=== PATIENT | female | born 1950 | race Caucasian/White ===

== ENCOUNTER 2025-06-16 08:03 | Outpatient (OUT) | payer MEDICARE, SELFPAY ==
--- NOTE | 2025-06-16 08:21 | MM_ITS ---
Patient Name: LESLY MARTINEZ MR#: [id number] : 1950 Exam Date: 06/16/2025 Ordering Doctor: DR MADISON MUNOZ M.D. RADIOLOGY REPORT PROCEDURE: MM TOMOSYNTHESIS SCREENING BI COMPARISON: MG MAMM SCREEN 3D VIRGEN CAD, 10/06/2022. MAMMO SCREEN DIG VIRGEN, 04/29/2012. INDICATIONS: Screening Calculator Name NCI Breast Cancer Risk Assessment Tool 5 Year Breast Cancer Risk 3.10% Lifetime Breast Cancer Risk 8.10% Personal Breast Cancer No Personal Ovarian Cancer No Treatments None Family Cancers Sister with breast cancer at age 61; Father with aortic tumor cancer at age 60; Brother with leukemia cancer at age 24. LOCATION: [facility] BREAST COMPOSITION: The breasts are heterogeneously dense, which may obscure small masses. FINDINGS: DIAGNOSTIC CATEGORY 1--NEGATIVE. RIGHT BREAST: No significant suspicious finding. LEFT BREAST: No significant suspicious finding. RECOMMENDATIONS: ROUTINE MAMMOGRAM AND CLINICAL EVALUATION IN 12 MONTHS. PLEASE NOTE: A NORMAL MAMMOGRAM DOES NOT EXCLUDE THE POSSIBILITY OF BREAST CANCER. A CLINICALLY SUSPICIOUS PALPABLE LUMP SHOULD BE BIOPSIED. Dictated by: Galindo Alberts MD on 06/16/2025 at 12:32 Approved by: Galindo Alberts MD on 06/16/2025 at 12:36
[2025-06-16 09:09] LABS: Microalbum Creatinine Ratio Ur 41.3 mg/g (0.0-29.9)
[2025-06-16 09:17] LABS: Alanine Aminotransferase 27 U/L (14-59); Albumin Globulin Ratio 1.0; Albumin Level 4.2 g/dL (3.4-5.0); Alkaline Phosphatase 58 U/L (46-116); Anion Gap 14.0; Aspartate Amino Transferase 19 U/L (15-37); Blood Urea Nitrogen 22.0 mg/dL (7.0-18.0); Calcium 10.0 mg/dL (8.5-10.1); Carbon Dioxide 29.1 mmol/L (21.0-32.0); Chloride 102 mmol/L (98-107); Cholesterol 236 mg/dL (<=200); Estimated GFR (African America 42 (>=60 mL/min/1.73m^2); Estimated GFR (Non-African Ame 35 (>=60 mL/min/1.73m^2); Globulin 4.0 g/dL; Glucose 110 mg/dL (74-106); HDL Cholesterol 113 mg/dL (40-60); Potassium 4.1 mmol/L (3.5-5.1); Sodium 141 mmol/L (136-145); Thyroid Stimulating Hormone 7.372 uIU/mL (0.358-3.740); Total Protein 8.2 g/dL (6.4-8.2); Triglycerides 73 mg/dL (<=150); VLDL CHOLESTEROL 14.6 mg/dL
[2025-06-16 09:36] LABS: Hematocrit 46.8 % (36.0-48.0); Hemoglobin 15.3 g/dL (12.0-16.0); Immature Granulocytes Abs Auto 0.02 10^3/uL (0.00-0.03); Immature Granulocytes Pct Auto 0.3 % (0.0-0.5); Lymphocytes Absolute Auto 2.3 10^3/uL (1.2-3.8); Mean Corpuscular HGB Conc 32.7 g/dL (29.9-35.2); Mean Corpuscular Hemoglobin 30.7 pg (26.7-34.0); Mean Corpuscular Volume 93.8 fL (81.0-99.0); Platelet Count 205 10^3/uL (150-450); Red Blood Count 4.99 10^6/uL (4.20-5.40); White Blood Count 7.3 10^3/uL (4.0-11.0)
== END 2025-06-16 08:04 | disposition home or self-care (01) ==
PROVIDERS: PCP Family Medicine; Visit Provider Family Medicine
DX: Z00.00 Encounter for general adult medical examination without abnormal findings (principal); E78.5 Hyperlipidemia, unspecified; I10 Essential (primary) hypertension; R53.83 Other fatigue; Z12.31 Encounter for screening mammogram for malignant neoplasm of breast; Z80.3 Family history of malignant neoplasm of breast; Z80.6 Family history of leukemia; Z80.8 Family history of malignant neoplasm of other organs or systems
CPT/HCPCS: 36415; 77063; 77067; 80053; 80061; 82043; 82570; 84439; 84443

== ENCOUNTER 2025-10-03 08:30 | Outpatient (OUT) | payer MEDICARE, SELFPAY ==
--- OUTSIDE RECORDS SUMMARY | 2025-09-19 11:01 | XMS_ITS | Continuity of Care Document ---
Author Organization [facility] Address [address] [place] [address] Phone Care Team Providers Care Cold Press Operator Name Role Phone Skyla Pinto MD Primary Care Provider Lisa Mallory Attending Provider [phone] Care Teams Patient Care Team Team Status: Active Member Role/Relationship Status Dates Skyla Pinto MD Primary Care Provider Active Patient Care Team Team Status: Inactive Member Role/Relationship Status Dates Skyla Pinto MD Primary Care Provider Active Start: September 19, 2025 End: September 19Shamika Crisostomoending ProviderActiveStart: September 19, 2025 End: September 19, 2025 Chief Complaint and Reason for Visit Chief Complaint Admit Date ckd 3 September 19, 2025 3 :29pm Reason for Visit Admit Date CKD (chronic kidney disease) stage 3, GF R 30-59 ml/min September 19, 2025 3:29pm Hyperlipidemia, unspecified August 3:29pm Hypertensive chronic kidney disease with stage 1 through stage 4 chronic ki September 19, 2025 3:29pm Murmur September 19, 2025 3 :29pm Secondary hyperparathyroidism September 192024 3:29pm Allergies, Adverse Reactions, Alerts Allergen Type Severity Reaction Last Updated Verified Status No Known Allergies Allergy Unknown September 19, 2025 3:34pmYesActive Social History Smoking Status Status Start Date End Date Date of Observa tion Never smoked tobacco (finding) September 19, 2025 3:57pm Observation Status Observation Response Date of Response Legal Sex Female (finding) [facility] 1949 Problems Active Problems Problem Diagnosis/Recorded Date Onset Date Stat us Screening mammogram for [facility] cancer May 29, 2025 11:22am Unknown Active Secondary hyperparathyroidism September 19, 2025 3:50p m Unknown Active Fatigue May 29, 2025 11:29am Unknown Acti ve CKD (chronic kidney disease) stage 3, GFR 30-59 ml/min July 05, 2025 12:54pm Unknown Active Hypertensive chronic kidney disease with stage 1 through stage 4 chronic kidney disease, or unspecified chronic kidney disease September 19, 2025 3:50pm Unknown Active Wellness examination May 29, 2025 11:13am Unknown Active Murmur September 19, 2025 3:54pm Unknown Ac tive Hyperlipidemia, unspecified May 26, 2025 3:15pm Feb ruary 2015 Active Essential (primary) hypertension May 26, 2025 3:15p m Unknown Active Allergic rhinitis, unspecified April 20, 2024 11:39am January 14, 2016 Active Ulcerative colitis May 26, 2025 3:17pm Unknown Active Medications Medication Status Dose Units Route Directions Qty Days Refills S tart Date Stop Date End Date Reason(s) Instructions Adherence Simvastatin 20 mg tablet Discontinued 0 .ROUTE.NPCUQXD426Fjwih 2023 9:45pmOctober 2023 9:00amTAKE 1 TABLET BY MOUTH EVERY DAYSimvastatin 20 mg tabletDiscontinued0.ROUTE.XSCMJOM736Djfmyuf 2023 9:00amSeptember 2024 8:37amTAKE 1 TABLET BY MOUTH EVERY DAY Spironolactone 50 mg ebkfymFdjpzyjhnktp70EFEJVdnyoAbfprzk 2023 12:00am September 08, 2024 1:09pmSpironolactone 50 mg tabletDiscontinued0.ROUTE.COMPLEX 903October 2023 1:09pmSeptember 2024 10:39amTAKE 1 TABLET BY MOUTH EVERY DAYLevothyroxine 75 mcg bcmhsqFwxtlz83CFIAPfsdld397Lwczlp 2024 12:00amComplies with drug therapySimvastatin 20 mg tabletDiscontinued0.ROUTE .JIACOYH802Ygbnedfwi 2024 8:37amOctober 2024 3:40pmTAKE 1 TABLET BY MOUTH EVERY DAYSpironolactone 50 mg tabletDiscontinued0.ROUTE.EUOXWNQ897 August 23, 2025 10:39amOct2024 3:40pmTAKE 1 TABLET BY MOUTH EVERY DAYIpratropium Scandia 21 mcg (0.03 %) spray,non-aerosolActive0.ROUTE .FWSROKF828MsezqseSeptember 11, 2025 3:12pmINSTILL 2 SPRAYS IN EACH NOSTRIL TWICE DAILY FOR 90 DAYSComplies with drug therapySimvastatin 20 mg fjhsmnDdgavrougbkd87KBXN DailyApril 2023 12:00amApril 2023 9:45pmIpratropium Scandia 21 mcg (0.03 %) spray,non-ohleukaNvcubduqyuac6DJPPSNJUGQQPSAMHufte nqnlv614Eive 2024 12:00amJune 2024 10:55amadminister into each nostrilSimvastatin 20 mg zlkdeaEyznzd59YRYJJohxq at bedtimeSeptember 19, 2025 3:35pmComplies with drug therapyAscorbic Acid (Vitamin C) 1,000 mg gpweglSdoffi1261TEAUXgahcGhlrbpq 21st, 2025 12:00amComplies with drug therapyCetirizine (Zyrtec) 10 mg wekzojJxzfwu81IB PODaily as neededSeptember 19, 2025 12:00amComplies with drug therapyAspirin 81 mg hrmttjKfqofo56LMKIYwnpbWjbnivb 21st, 2025 12:00amComplies with drug therapy Spironolactone 50 mg aukyusWgajaw30CVMCHdkeVztighk 21st, 2025 3:35pmComplies with drug therapyCholecalciferol (Vitamin D3) 25 mcg (1,000 unit) capsuleActive 25MCGPODailySeptember 19, 2025 12:00amComplies with drug therapyPsyllium Husk (Wal-Mucil Fiber) 0.52 gram capsuleActive0.52GMPODaily at bedtimeSeptember 19, 2025 12:00amComplies with drug therapyCalcium Citrate-Vitamin D3 315 mg-5 mcg (200 unit) uitqknZrmnza3NPJVTOfyfqDhpwjre 21st, 2025 12:00amComplies with drug therapyOmega 2-Kyy-Lgf-Fish Oil (Fish Oil) 100-160-1,000 mg capsuleActiveCAPPO September 19, 2025 12:00amComplies with drug therapyMecobalamin (Vitamin B12) 1,000 mcg tablet,lpwcdszaxwlrloSywrpb3686YDNGAPOLPZRTZRomoaIyhkqrz 21st, 2025 12:00amplace tablet under tongue and allow to dissolve for at least30 secs before swallowingComplies with drug therapyAspirin 325 mg ixkkdzOlryddqcjsjf892 MGPODailyJune 2024 12:00amOctober 2024 3:36pmIpratropium Scandia 21 mcg (0.03 %) spray,non-kcybywvZuoktgpsihku8UACEGMHOBQZNCBPUorlv dailyJune 2024 12:00amJune 2024 11:41amadminister into each nostrilIpratropium Scandia 21 mcg (0.03 %) spray,non-nmcbvudApyahoyuklqo9IQZYZPKTUBVVRJVHyjye daily 21539Qzgl 2024 11:41amOctober 2024 3:12pmadminister into each nostril Immunizations Immunization Event Date Not Given Reason Dose Number Shopping Investigator Lot Number Reason(s) Given Vaccine Information Statement (VIS) Detail Administration Location COVID-19 mRNA, Comirnaty (BIOCUREX) January 07, 2021 COVID-19 mRNA, Comirnaty (BIOCUREX)January 28OVI mRNA, Comirnaty (BIOCUREX)September 13OVI mRNA, Comirnaty (BIOCUREX)February 26, 2022 influenza, unspecified formulationAugcase[facility] 2018influenza, unspecified formulationAmerican Healthcare Systemsneumococcal Conjugate Vaccine, 13 valentApril 2017 Vital Signs Vital Reading Result Reference Range Collection Date/Time Height 62.5 [in_i] September 19, 2025 3:15vkNonmpl12.27 kgOctcasey county hospital 2024 3:31pmBody Temperature 97.2 [degF]97.6-99.0Octcasey county hospital 2024 3:31pmHeart Rate76 /aks26-405GzfycsjSeptember 19, 2025 3:31pmRespiratory rate18 /fjo93-12Uvoqwsf 2024 3:31pmOxygen saturation by Pulse ayeghbnt35 %95-100Augcasey county hospital 2024 3:31pmBP Yokgyidi501 mm[Hg]100-140October 2024 3:31pmBP Ktislwwbz70 mm[Hg]60-100Octcasey county hospital 2024 3:31pmBMI (Body Mass Index)28.3 kg/u9RgwhidbSeptember 19, 2025 3:31pm Advance Directives Advance Directive Response Recorded Date/ Time Advance Directives No September 19, 2025 3:57pm Insurance Providers Guarantor Rochelle Liz [address] [address]Cfbhopb Info.Home Phone: Payer Group Member ID Coverage Type Subscriber Relationship to Subscriber Effective Date Expiration Date Medicare [id number] Liz Id: [id number] [address] [address] Home Phone: Email: [email or web address] Advantage PFFS [id number] Liz Id: [id number] [address] [facility] [address] Home Phone: Email: [email or web address] [id number] Liz Id: [id number] [address] [facility] [address] Home Phone: Email: [email or web address] Encounters Encounter Location(s) Arrival/Admit Date Discharge/Departure Date Discharge/Departure Disposition Provider(s) Departed Physician/ Provider Office Visit -[facility] September 19, 2025 3:29pm September 19, 2025 4:00pm Discharged to home care or self care (routine discharge) Frank Mallory MD Recent Diagnosis Onset Date Admit Date CKD (chronic kidney disease) stage 3, GFR 30-59 ml/min Unknown September 19, 2025 3:29pm Hyperlipidemia, unspecified January 14, 2016 September 19, 2025 3:29pm Hypertensive chronic kidney disease with stage 1 through stage 4 chronic ki Unknown September 19, 2025 3:29pm Murmur Unknown September 19 3:29pm Secondary hyperparathyroidism Unknown Oc tober 2024 3:29pm Assessments Diagnosis Onset Date Resolution Status Admit Date CKD (chronic kidney disease) stage 3, GF R 30-59 ml/min acuteOct2024 3:29pmHyperlipidemia, unspecifiedFebruary 2015 acuteOctober 2024 3:29pmHypertensive chronic kidney disease with stage 1 through stage 4 chronic kiacuteSeptember 19, 2025 3:29pmMurmuracuteOct2024 3:29pmSecondary hyperparathyroidismacuteSeptember 19, 2025 3:29pm Plan of Treatment Future Tests Future scheduled test information is unavailable Pending Tests Test Name Ordered Date Scheduled Date ECH echo transthoracic September 19, 2025 3:53pm Immunofixation, (CHAR), UrineSeptember 19, 2025 3:48pm6 WeeksRenal Function Panel September 19, 2025 3:48pm6 WeeksUS renal BIOctober 2024 3:52pm Future Visits Future appointment information is unavailable Future Procedures Procedure Name Ordered Date Scheduled Date Dipstick and Microscopic September 19, 2025 3:48 pm 6 Weeks Hemogram CBC Without Diff September 19, 2025 3:4 8pm 6 Weeks Immunofixation,Serum September 19, 2025 3:48pm 6 Weeks Free K+L LT Chains, Qn, S September 19, 2025 3:4 8pm 6 Weeks Magnesium September 19, 2025 3:48pm 6 Week s Protein Creat Ratio Ur Random September 19, 2025 3:48pm 6 Weeks Parathyroid Hormone Intact September 19, 2025 3: 48pm 6 Weeks Prot Electrophoresis w/Interp September 19, 2025 3:48pm 6 Weeks Protein Electrophoresis, Serum September 19 3:48pm 6 Weeks Uric Acid September 19, 2025 3:48pm 6 Week s Vitamin D 25 Hydroxy Total September 19, 2025 3: 48pm 6 Weeks Future Medications Future medication information is unavailable Patient Instructions Patient instructions are unavailable
--- NOTE | 2025-10-03 08:37 | US_ITS ---
The [address] [address] Patient Name: LESLY MARTINEZ MRN: [id number] date: 1950 Sex: F Assigned Patient Location: US Current Patient Location: US Accession/Order Number: [id number] Exam Date: 10/03/2025 08:40 Report Date: 10/03/2025 10:00 At the request of: BERENICE SY Procedure: US renal BI BILATERAL RENAL AND BLADDER ULTRASOUND CLINICAL HISTORY: Stage 3 Chronic Kidney Disease, Hypertensive Renal Disease COMPARISON: None Estimation of renal size is approximately 9.2 cm on the right and 10.0 cm on the left. No shadowing calculi are identified. There is no hydronephrosis on the left though there is mild pelvicaliectasis on the right. No renal mass lesions were imaged. There is no perinephric fluid. The urinary bladder is partially distended with a volume of 58 mL. No contour or intraluminal abnormalities are seen. Bilateral ureteral jets are seen. US/US renal BI IMPRESSION: MILD RIGHT HYDRONEPHROSIS, UNDETERMINED ETIOLOGY. Impression dictated by: Mariola Washington M.D. 10/03/2025 10:00 AM Dictation Location: [place] [address] Electronically authenticated by: [id number] Y Date: 10/03/2025 10:00
--- NOTE | 2025-10-03 09:30 | CA_ITS ---
Patient Name: LESLY MARTINEZ MR#: [id number] : 1950 Exam Date: 10/03/2025 Ordering Doctor: BERENICE SY ECHOCARDIOGRAM REPORT PROCEDURE: CA ECHO DOPPLER COMPLETE INDICATIONS: Cardiac Murmur COMPARISON: None. DESCRIPTION: COMPLETE ECHOCARDIOGRAM Real-time transthoracic echocardiography with 2D, M-mode, spectral and color flow Doppler performed. QUALITY: Technical quality was good. LEFT VENTRICLE: Normal chamber size. Proximal septal hypertrophy (sigmoid septum). Normal systolic function. Estimated left ventricular ejection fraction is 70%. No significant left ventricular outflow tract obstruction. LV EF: Normal left ventricular ejection fraction, (>55%). DIASTOLIC: Normal diastolic function. ATRIAL SEPTUM: Visually appears intact. LEFT ATRIUM: Mild chamber dilatation. RIGHT ATRIUM: Normal chamber size. RIGHT VENTRICLE: Mild chamber dilatation. Normal right ventricular systolic function. TRICUSPID VALVE: Normal mobility and thickness. No stenosis with mild regurgitation. No evidence of pulmonary hypertension. RVSP 26 mmHg MITRAL VALVE: Normal mobility and thickness. No evidence of mitral valve stenosis. There is no mitral annular calcification. No mitral regurgitation. AORTIC VALVE: Normal trileaflet appearance. No visible sclerosis. Normal leaflet mobility. No evidence of aortic valve stenosis. No aortic regurgitation. AORTIC ROOT: Normal diameter and appearance, measuring 3.2 cm. Ascending aorta is normal in size, measuring 3.1 cm. PULMONIC VALVE: Normal thickness and mobility. No stenosis. Trivial regurgitation. PERICARDIUM: No evidence of pericardial effusion. IVC: Collapses with inspiration. PLEURA: CONCLUSION: 1. The left ventricle is normal in size. There is mild proximal septal hypertrophy. Systolic function is normal. No significant LVOT obstruction. LVEF is estimated at 70%. 2. Mildly dilated right ventricle with normal systolic function. 3. Normal diastolic function. 4. Mild tricuspid regurgitation. 5. Normal right-sided pressures. Adult Echocardiography Procedure Report Left Ventricle LVEDD (3.7 - 5.6 cm): 4.06 cm LVESD (2.2 - 4.0 cm): 2.10 cm LVIVS thickness (0.6 - 1.2 cm): 1.06 cm LVPW thickness (0.5 - 1.0 cm): 0.81 cm e': 0.11 m/s E - e': 4.89 LVOT Max Gradient: 4.47 mm[Hg] LVOT Area (cm2): 1.06 m/s Peak Velocity (LVOT): 1.06 m/s Mean Velocity (LVOT): 0.62 m/s LVOT Diameter 1.96 cm Left Ventricular Ejection Fraction: 70 % Left Atrium LA Volume Index (2D A2C): 35.02 ml/m2 Left Atrium Systolic Dimension: 3.58 cm Mitral Valve MV E to A Ratio: 0.85 Mitral Valve A-Wave Peak Velocity: 0.63 m/s Mitral Valve E-Wave Peak Velocity: 0.53 m/s Right Ventricle Aorta AO Root Diam: 3.24 cm Ascending Ao Diam: 3.11 cm Aortic Valve AoV Area (Peak Raúl): 3.04 cm2, 3.04 cm2 AoV Area (VTI): 2.62 cm2, 2.62 cm2 Peak Velocity(Antegrade Flow): 1.05 m/s Peak Gradient(Antegrade Flow): 4.42 mm[Hg] Mean Velocity(Antegrade Flow): 0.72 m/s Mean Gradient(Antegrade Flow): 2.38 mm[Hg] Velocity Time Integral: 25.29 cm Tricuspid Valve Peak Velocity (Regurgitant Flow): 2.42 m/s Pulmonic Valve Mean Gradient: 1.47 mm[Hg] Mean Velocity: 0.55 m/s Peak Velocity: 0.93 m/s, 0.93 m/s Peak Gradient: 3.46 mm[Hg], 3.43 mm[Hg] Right Atrium Right Atrium Systolic Pressure: 31.25 ml, 31.25 ml Dictated by: Lawrence Curran M.D. on 10/03/2025 at 21:20 Approved by: Lawrence Curran M.D. on 10/03/2025 at 21:27
== END 2025-10-03 08:31 | disposition home or self-care (01) ==
LOC: US 08:30
PROVIDERS: PCP Family Medicine; Visit Provider Internal Medicine
DX: R01.1 Cardiac murmur, unspecified (principal); N25.81 Secondary hyperparathyroidism of renal origin; I12.9 Hypertensive chronic kidney disease with stage 1 through stage 4 chronic kidney disease, or unspecified chronic kidney disease; N18.30 Chronic kidney disease, stage 3 unspecified; E78.2 Mixed hyperlipidemia; N13.30 Unspecified hydronephrosis
CPT/HCPCS: 76775; 93306

== ENCOUNTER 2025-10-06 09:17 | Outpatient (OUT) | payer MEDICARE, SELFPAY ==
[2025-10-06 09:58] LABS: Hematocrit 40.6 % (36.0-48.0); Hemoglobin 13.6 g/dL (12.0-16.0); Mean Corpuscular HGB Conc 33.5 g/dL (29.9-35.2); Mean Corpuscular Hemoglobin 30.8 pg (26.7-34.0); Mean Corpuscular Volume 92.1 fL (81.0-99.0); Platelet Count 172 10^3/uL (150-450); Red Blood Count 4.41 10^6/uL (4.20-5.40); White Blood Count 5.7 10^3/uL (4.0-11.0)
[2025-10-06 10:35] LABS: Albumin Level 3.6 g/dL (3.4-5.0); Anion Gap 16.3; Blood Urea Nitrogen 17.0 mg/dL (7.0-18.0); Calcium 9.8 mg/dL (8.5-10.1); Carbon Dioxide 25.7 mmol/L (21.0-32.0); Chloride 100 mmol/L (98-107); Estimated GFR (African America 58 (>=60 mL/min/1.73m^2); Estimated GFR (Non-African Ame 48 (>=60 mL/min/1.73m^2); Glucose 98 mg/dL (74-106); Magnesium 1.7 mg/dL (1.8-2.4); Potassium 4.0 mmol/L (3.5-5.1); Sodium 138 mmol/L (136-145); Uric Acid 5.4 mg/dL (2.6-6.0)
[2025-10-06 10:42] LABS: Protein Creatinine Ratio Urine 0.59; Total Protein Urine Random 37.8 mg/dL (<=11.9)
[2025-10-06 10:55] LABS: Glucose Urine UA NEGATIVE (NEGATIVE)
[2025-10-06 11:36] LABS: Cast Seen? NONE SEEN #/LPF (NONE SEEN); Crystals Seen? None Seen #/HPF (None Seen)
[2025-10-10 15:08] LABS: Albumin 3.6 g/dL (2.9-4.4); Alpha-1-Globulin 0.3 g/dL (0.0-0.4); Alpha-2-Globulin 0.8 g/dL (0.4-1.0); Free Kappa Lt Chains,S 32.6 mg/L (3.3-19.4); Free Lambda Lt Chains,S 17.3 mg/L (5.7-26.3); Gamma Globulin 0.9 g/dL (0.4-1.8); Immunofixation Result, Serum Comment: (.); Immunoglobulin A, Qn, Serum 108 mg/dL (64-422); Kappa/Lambda Ratio,S 1.88 (0.26-1.65)
== END 2025-10-06 09:18 | disposition home or self-care (01) ==
LOC: LAB 09:17
PROVIDERS: PCP Family Medicine; Visit Provider Internal Medicine
DX: I12.9 Hypertensive chronic kidney disease with stage 1 through stage 4 chronic kidney disease, or unspecified chronic kidney disease (principal); N18.30 Chronic kidney disease, stage 3 unspecified; E78.2 Mixed hyperlipidemia; N25.81 Secondary hyperparathyroidism of renal origin
CPT/HCPCS: 36415; 80069; 81001; 82306; 82570; 82784; 83521; 83735; 83970; 84155; 84156; 84165; 84166; 84550; 85027; 86334; 86335

== ENCOUNTER 2025-11-03 08:33 | Outpatient (OUT) | payer MEDICARE, SELFPAY ==
--- NOTE | 2025-11-03 08:36 | CT_ITS ---
The [address] [address] Patient Name: LESLY MARTINEZ MRN: [id number] date: 1950 Sex: F Assigned Patient Location: CT Current Patient Location: CT Accession/Order Number: [id number] Exam Date: 11/03/2025 08:39 Report Date: 11/03/2025 09:24 At the request of: KRISH BENOIT MD Procedure: CT abdomen pelvis wo con CT ABDOMEN AND PELVIS WITHOUT CONTRAST COMPARISON: Renal ultrasound 10/03/2025 CLINICAL DATA: Recurring urinary tract infections. Follow-up right hydronephrosis. Spiral images were obtained through the abdomen and pelvis without contrast. This CT exam was performed using one or more following dose reduction techniques: Automated exposure control, adjustment of the mA and/or kV according to patient size, or use of iterative reconstruction technique. Limited cuts through the lung bases show a left lower lobe calcified granuloma. Evaluation of the intra-abdominal organs is slightly limited by the absence of contrast. Subtle noncalcified gallstones are not excluded. There are no intrahepatic masses. Calcified splenic granulomas are seen. The pancreas and adrenal glands are within normal limits. There is a large stone within the renal pelvis on the right measuring 13 - 14 mm in size. There is mild associated right hydronephrosis. There are suspected left parapelvic renal cysts. There is minor plaque at the aorta and iliac arteries. No enlarged lymph nodes or ascites are seen. There is no dilated small bowel. Mild stool is visualized along the colon. There is dextroscoliotic curvature and degenerative changes at the spine. There is wedge deformity at the inferior endplate of L1, likely chronic. Images through the pelvis show no dilated small bowel. There is mild stool at the distal colon. There are distal descending and sigmoid diverticula, without associated active inflammation. The appendix and uterus appear to be surgically absent. The urinary bladder is poorly distended for evaluation. No ascites is seen. CT/CT abdomen pelvis wo con IMPRESSION: RIGHT RENAL PELVIC STONE AND CONTINUED MILD RIGHT HYDRONEPHROSIS. SUSPECTED LEFT PARAPELVIC RENAL CYSTS. GRANULOMATOUS CHANGES. MILD DIVERTICULOSIS. Impression dictated by: Mariola Washington M.D. 11/03/2025 9:24 AM Dictation Location: [facility]02 Electronically authenticated by: [id number] Y Date: 11/03/2025 09:24
== END 2025-11-03 08:34 | disposition home or self-care (01) ==
LOC: CT 08:34
PROVIDERS: PCP Family Medicine; Visit Provider Urology
DX: N13.30 Unspecified hydronephrosis (principal); N20.0 Calculus of kidney; K57.90 Diverticulosis of intestine, part unspecified, without perforation or abscess without bleeding
CPT/HCPCS: 74176

== ENCOUNTER 2025-11-15 12:16 | Outpatient (OUT) | payer MEDICARE, SELFPAY ==
--- NOTE | 2025-11-15 12:17 | ECG_ITS ---
The [facility] Test Date: 2025-11-15 Pat Name: LESLY MARTINEZ Department: Room: - Gender: Female Dial Maker: : 1950 Requested By: 1730 Order Number: [id number] Reading MD: ANABEL JARVIS M.D. Measurements Intervals [place] Rate: 61 P: 0 GA: 185 QRS: 23 QRSD: 90 T: 17 QT: 343 QTc: 347 Interpretive Statements SINUS RHYTHM WITH SINUS ARRHYTHMIA Normal ECG No previous ECG available for comparison Electronically Signed On 11-16-2025 18:10:46 EST by ANABEL JARVIS M.D.
--- NOTE | 2025-11-15 13:12 | PM.PRESUREVA ---
History of Present Illness History of Present Illness Chief complaint: right ureteral stone Narrative: Patient presents for presurgical testing. Please see HPI from Dr. Radford dated November 10, 2025. Review of Systems ROS Narrative Please see ROS from Dr. Radford dated November 10, 2025. [facility] Medical History (Updated 11/15/25 @ 12:48 by Erika Romero NP) Arthritis ?M19.90 - Unspecified osteoarthritis, unspecified site (ICD-10) Headache ?R51.9 - Headache, unspecified (ICD-10) Heartburn ?R12 - Heartburn (ICD-10) Extremity edema ?R60.0 - Localized edema (ICD-10) Heart murmur ?R01.1 - Cardiac murmur, unspecified (ICD-10) Ulcerative colitis ?K51.90 - Ulcerative colitis, unspecified, without complications (ICD-10) Renal cyst, left ?N28.1 - Cyst of kidney, acquired (ICD-10) Phlebitis ?I80.9 - Phlebitis and thrombophlebitis of unspecified site (ICD-10) Kidney stones ?N20.0 - Calculus of kidney (ICD-10) Hypothyroidism (acquired) ?E03.9 - Hypothyroidism, unspecified (ICD-10) Hyperlipidemia ?E78.5 - Hyperlipidemia, unspecified (ICD-10) Hydronephrosis, right ?N13.30 - Unspecified hydronephrosis (ICD-10) Hypertension ?I10 - Essential (primary) hypertension (ICD-10) Chronic kidney disease ?N18.9 - Chronic kidney disease, unspecified (ICD-10) Chondromalacia, patella ?M22.40 - Chondromalacia patellae, unspecified knee (ICD-10) Varicose veins of both lower extremities ?I83.93 - Asymptomatic varicose veins of bilateral lower extremities (ICD-10) Right ureteral stone ?N20.1 - Calculus of ureter (ICD-10) Surgical History (Updated 11/15/25 @ 13:09 by Erika Romero NP) H/O right knee surgery (~1988) ?Z98.890 - Other specified postprocedural states (ICD-10) H/O varicose vein ligation and stripping (~1987) ?Z98.890 - Other specified postprocedural states (ICD-10) H/O ovarian cystectomy (~1974) ?Z98.890 - Other specified postprocedural states (ICD-10) ?Z87.42 - Personal history of other diseases of the female genital tract (ICD-10) S/P cataract extraction and insertion of intraocular lens ?Z98.49 - Cataract extraction status, unspecified eye (ICD-10) ?Z96.1 - Presence of intraocular lens (ICD-10) History of colonoscopy ?Z98.890 - Other specified postprocedural states (ICD-10) History of hysterectomy (~1982) ?Z90.710 - Acquired absence of both cervix and uterus (ICD-10) Family History (Updated 11/15/25 @ 12:45 by Erika Romero NP) Other Family history of breast cancer Family history of cancer Family history of coronary artery disease Family history of heart disease Family history of hypertension Family history of leukemia Social History (Updated 11/15/25 @ 13:10 by Erika Romero NP) Within the past year, how often did you have a drink containing alcohol: monthly or less Smoking status: Never smoker Non-prescribed substance use: denies use 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 Highest level of school completed/degree received: high school graduate Meds Home Medications and Allergies Home Medications ?Medication ?Instructions ?Recorded ?Confirmed ?Type ascorbate calcium (vitamin C) 500 500 mg PO DAILY 11/15/25 11/15/25 History mg capsule aspirin 81 mg tablet,delayed 81 mg PO DAILY 11/15/25 11/15/25 History release (Adult Aspirin Regimen) calcium 315 mg (as 1 tab PO DAILY 11/15/25 11/15/25 History citrate)-vitamin D3 6.25 mcg (250 unit) tablet (Citracal + Vitamin D Maximum) cetirizine 10 mg tablet (Zyrtec) 10 mg PO DAILY 11/15/25 11/15/25 History cholecalciferol (vitamin D3) 50 2,000 unit PO DAILY 11/15/25 11/15/25 History mcg (2,000 unit) capsule estradiol 0.01% (0.1 mg/gram) 1 appful vaginal DAILY PRN 11/15/25 11/15/25 History vaginal cream post-menopause levothyroxine 75 mcg tablet 75 mcg PO DAILY 11/15/25 11/15/25 History mecobalamin (vitamin B12) 5,000 5,000 mcg PO DAILY 11/15/25 11/15/25 History mcg disintegrating tablet omega 9-bhv-efm-fish oil 1,000 mg 1 cap PO DAILY 11/15/25 11/15/25 History (120 mg-180 mg) capsule (Fish Oil) simvastatin 20 mg tablet 20 mg PO DAILY 11/15/25 11/15/25 History spironolactone 50 mg tablet 50 mg PO DAILY 11/15/25 11/15/25 History Allergies Allergy/AdvReac Type Severity Reaction Status Date / Time No Known Drug Allergies Allergy Verified 11/15/25 12:35 Exam Narrative Exam Narrative: Constitutional: Awake, alert, comfortable, well-appearing, nontoxic, interactive, vital signs as charted Head: Normocephalic, atraumatic Neck: Supple, normal appearance, normal range of motion, no meningeal signs, no lymphadenopathy Respiratory: No respiratory distress, breath sounds clear Cardiovascular: Regular rate and rhythm, strong and regular heart tones Abdomen: Nontender, normal bowel sounds, soft, no CVA tenderness Musculoskeletal: Normal gait, no swelling or edema Skin: No rashes or induration, no lesions, only visible skin inspected Neuro: No neurological deficits, normal sensation Psychiatric: Oriented ?3, normal affect Assessment and Plan Assessment and Plan (1) Right ureteral stone: Plan Ureteroscopy, laser lithotripsy, stone basket extraction, possible right stent placement scheduled with Dr. Radford November 29, 2025.
[2025-11-15 13:23] LABS: Hematocrit 44.1 % (36.0-48.0); Hemoglobin 14.9 g/dL (12.0-16.0); Immature Granulocytes Abs Auto 0.01 10^3/uL (0.00-0.03); Immature Granulocytes Pct Auto 0.2 % (0.0-0.5); Lymphocytes Absolute Auto 1.4 10^3/uL (1.2-3.8); Mean Corpuscular HGB Conc 33.8 g/dL (29.9-35.2); Mean Corpuscular Hemoglobin 30.5 pg (26.7-34.0); Mean Corpuscular Volume 90.4 fL (81.0-99.0); Platelet Count 171 10^3/uL (150-450); Red Blood Count 4.88 10^6/uL (4.20-5.40); White Blood Count 6.5 10^3/uL (4.0-11.0)
[2025-11-15 13:34] LABS: INR 0.97; Partial Thromboplastin Time 24.1 sec (22.3-36.2); Prothrombin Time 10.2 sec (9.0-11.6)
[2025-11-15 13:45] LABS: Glucose Urine UA NEGATIVE (NEGATIVE)
[2025-11-15 14:01] LABS: Crystals Seen? None Seen #/HPF (None Seen)
[2025-11-15 14:02] LABS: Cast Seen? NONE SEEN #/LPF (NONE SEEN); Urine Culture Indicated YES-FRMC
[2025-11-15 14:03] LABS: Anion Gap 14.2; Blood Urea Nitrogen 11.0 mg/dL (7.0-18.0); Calcium 9.8 mg/dL (8.5-10.1); Carbon Dioxide 27.8 mmol/L (21.0-32.0); Chloride 99 mmol/L (98-107); Estimated GFR (African America 55 (>=60 mL/min/1.73m^2); Estimated GFR (Non-African Ame 46 (>=60 mL/min/1.73m^2); Glucose 103 mg/dL (74-106); Potassium 4.0 mmol/L (3.5-5.1); Sodium 137 mmol/L (136-145)
== END 2025-11-15 12:17 | disposition home or self-care (01) ==
LOC: PST 12:17
PROVIDERS: PCP Family Medicine; Visit Provider Urology
DX: Z01.812 Encounter for preprocedural laboratory examination (principal); Z01.818 Encounter for other preprocedural examination; N20.1 Calculus of ureter
CPT/HCPCS: 36415; 80048; 81001; 85025; 85610; 85730; 87086; 93005; G0463

== ENCOUNTER 2025-11-29 11:51 | Day surgery (SDC) | payer MEDICARE, SELFPAY ==
[2025-11-15 13:00] VITALS: BP 153/84; PULSE 76; TEMP 36.4; O2SAT 100; BMI 28.0
--- OUTSIDE RECORDS SUMMARY | 2025-11-17 05:22 | XMS_ITS | Continuity of Care Document ---
Author Organization [facility] Address [address] [place] [address] Phone Care Team Providers Care Die Attaching Machine Tender Name Role Phone Skyla Pinto MD Primary Care Provider Lisa Mallory Attending Provider [phone] Kei Darden DO Attending Provider Sarah Beth Radford MD Attending Provider Skyla Pinto MD Attending Provider Care Teams Patient Care Team Team Status: Active Member Role/Relationship Status Dates Skyla Pinto MD Primary Care Provider Active Visit Care Team Team Status: Inactive Member Role/Relationship Status Dates Skyla Pinto MD Primary Care Provider Active Start: September 19, 2025 End: September 19Percy Crisostomo ProviderActiveStart: September 19, 2025 End: September 19, 2025 Visit Care Team Team Status: Active Member Role/Relationship Status Dates Skyla Pinto MD Primary Care Provider Active Start: October 06, 2025 Percy Pizano ProviderActiveStart: October 06, 2025 Visit Care Team Team Status: Inactive Member Role/Relationship Status Dates Skyla Pinto MD Primary Care Provider Active Start: October 09, 2025 End: October 09Percy Crisostomo ProviderActiveStart: October 09, 2025 End: October 09, 2025 Visit Care Team Team Status: Inactive Member Role/Relationship Status Dates Skyla Pinto MD Primary Care Provider Active Start: October 16, 2025 End: October 16heraclio Darden DOAttcheyenne ProviderActiveStart: October 16, 2025 End: October 16, 2025 Visit Care Team Team Status: Active Member Role/Relationship Status Dates Skyla Pinto MD Primary Care Provider Active Start: November 15, 2025 Percy Jerry ProviderActiveStart: November 15, 2025 Visit Care Team Team Status: Inactive Member Role/Relationship Status Dates Sarah Beth Radford MD Attending Provider Active Start : November 15, 2025 End: November 15, 2025 Patient Care Team Team Status: Inactive Member Role/Relationship Status Dates Skyla Pinto MD Primary Care Provider Active Start: November 17, 2025 End: November 17, 2025Percy Burton ProviderActiveStart: November 17, 2025 End: November 17, 2025 Chief Complaint and Reason for Visit Chief Complaint Admit Date ckd 3 September 19, 2025 3 :29pm Renal F/U October 09, 2025 3:04pm Allergy injection October 16, 2025 1:15pm Presurgical Clearance November 17 9:51am Reason for Visit Admit Date CKD (chronic kidney disease) stage 3, GF R 30-59 ml/min September 19, 2025 3:29pm Hyperlipidemia, unspecified August 3:29pm Hypertensive chronic kidney disease with stage 1 through stage 4 chronic ki September 19, 2025 3:29pm Murmur September 19, 2025 3 :29pm Secondary hyperparathyroidism September 192024 3:29pm CKD (chronic kidney disease) stage 3, GF R 30-59 ml/min October 09, 2025 3:04pm Hydronephrosis October 09, 2025 3:04pm Hyperlipidemia, unspecified September 3:04pm Hypertensive chronic kidney disease with stage 1 through stage 4 chronic ki October 09, 2025 3:04pm Hypomagnesemia October 09, 2025 3:04pm Murmur October 09, 2025 3:04pm Secondary hyperparathyroidism September 302024 3:04pm UTI (urinary tract infection) September 302024 3:04pm Allergies, Adverse Reactions, Alerts Allergen Type Severity Reaction Last Updated Verified Status No Known Allergies Allergy Unknown November 17, 2025 10:01amYesActive Social History Smoking Status Status Start Date End Date Date of Observa tion Never smoked tobacco (finding) October 09, 2025 3:20pm Observation Status Observation Response Date of Response Legal Sex Female (finding) Sex Assigned At BirthFemaleDecember 1949 Problems Active Problems Problem Diagnosis/Recorded Date Onset Date Stat us UTI (urinary tract infection) October 10, 2025 8:11 am Unknown Active Hydronephrosis October 09, 2025 3:16pm Unknown Active Screening mammogram for [facility] cancer May 29, 2025 10:22am Unknown Active Secondary hyperparathyroidism September 19, 2025 2:50p m Unknown Active Fatigue May 29, 2025 10:29am Unknown Acti ve CKD (chronic kidney disease) stage 3, GFR 30-59 ml/min July 05, 2025 11:54am Unknown Active Hypertensive chronic kidney disease with stage 1 through stage 4 chronic kidney disease, or unspecified chronic kidney disease September 19, 2025 2:50pm Unknown Active Wellness examination May 29, 2025 10:13am Unknown Active Murmur September 19, 2025 2:54pm Unknown Ac tive Hyperlipidemia, unspecified May 26, 2025 2:15pm Feb ruary 2015 Active Essential (primary) hypertension May 26, 2025 2:15pm Unknown Active Allergic rhinitis, unspecified April 20, 2024 10:39am January 14, 2016 Active Ulcerative colitis May 26, 2025 2:17pm Unknown Active Hypomagnesemia October 09, 2025 3:50pm Unknown Active Medications Medication Status Dose Units Route Directions Qty Days Refills S tart Date Stop Date End Date Reason(s) Instructions Adherence Simvastatin 20 mg tablet Discontinued 0 .ROUTE.GOJCSCB079Btphg 2023 8:45pmOctober 2023 8:00amTAKE 1 TABLET BY MOUTH EVERY DAYSimvastatin 20 mg tabletDiscontinued0.ROUTE.GMZBPXB537Rdyfhub 2023 8:00amSeptember 2024 7:37amTAKE 1 TABLET BY MOUTH EVERY DAY Spironolactone 50 mg rlcnbiVndjqiripijl69KQEIAsvszIamdozy 2023 11:00pm September 08, 2024 12:09pmSpironolactone 50 mg tabletDiscontinued0.ROUTE.COMPLEX 903October 2023 12:09pmSeptember 2024 9:39amTAKE 1 TABLET BY MOUTH EVERY DAYLevothyroxine 75 mcg mqbsxsAlzwpzrgzqki34LSEQOdkcxo306Gxfioy 2024 11:00pmOctober 2024 4:03pmSimvastatin 20 mg tabletDiscontinued0.ROUTE .EAWLLYX325Apbufseln 17th, 2025 7:37amOctober 2024 2:40pmTAKE 1 TABLET BY MOUTH EVERY DAYSpironolactone 50 mg tabletDiscontinued0.ROUTE.SEZRLLC825 August 23, 2025 9:39amOctober 2024 2:40pmTAKE 1 TABLET BY MOUTH EVERY DAYIpratropium Andrews 21 mcg (0.03 %) spray,non-aerosolDiscontinued0.ROUTE .RLUWJCV750Tufvuln 13th, 2025 2:12pmNovember 2024 8:16amINSTILL 2 SPRAYS IN EACH NOSTRIL TWICE DAILY FOR 90 DAYSLevothyroxine 75 mcg tabletActive0.ROUTE .VBQGFKT413Ncuiaig 29th, 2025 4:03pmTAKE 1 TABLET BY MOUTH EVERY DAYComplies with drug therapyIpratropium Andrews 21 mcg (0.03 %) spray,non-aerosolActive0 .ROUTE.TSWUEXQ350Slbezcux 13th, 2025 8:16amINSTILL 2 SPRAYS IN EACH NOSTRIL TWICE DAILY FOR 90 DAYSComplies with drug therapySimvastatin 20 mg tablet Klbydrlsqrfi08WIKMVhulhNkevf 2023 11:00pmApril 2023 8:45pm Ipratropium Andrews 21 mcg (0.03 %) spray,non-trrarseGtydpiyprvhf5DWMBQ INTRANASALTwice cvnls036Jqpw 2024 11:00pmJune 2024 9:55amadminister into each nostrilSimvastatin 20 mg shllcnQetkbi94HEFPIvedc at bedtimeOct2024 2:35pmComplies with drug therapyAscorbic Acid (Vitamin C) 1,000 mg cfckgbFrktgw6577DKSLFenycQrskfbw 20th, 2025 11:00pmComplies with drug therapy Cetirizine (Zyrtec) 10 mg tbhtglSogqpn66JXDLWokzp as neededOct2024 11:00pmComplies with drug therapyAspirin 81 mg ueyqriTgtksm66ZPECHioyqEpivxtp 2024 11:00pmComplies with drug therapySpironolactone 50 mg tablet Kwcoqzrydgru07THUELhjvWcjpbho 2024 2:35pmAt[facility]20[facility] 3:19pm Cholecalciferol (Vitamin D3) 25 mcg (1,000 unit) oycrpnuFunxan72KMBPNZosmi September 18, 2025 11:00pmComplies with drug therapyPsyllium Husk (Wal-Mucil Fiber) 0.52 gram capsuleActive0.52GMPODaily at bedtimeMary [facility] 2024 11:00pm Complies with drug therapyCalcium Citrate-Vitamin D3 315 mg-5 mcg (200 unit) nfaifxLlslym3VUYCITorclImjdoou 2024 11:00pmComplies with drug therapyOmega 2-Lnq-Mlz-Fish Oil (Fish Oil) 100-160-1,000 mg capsuleActiveCAPPOMary [facility] Hospital 2024 11:00pmComplies with drug therapyMecobalamin (Vitamin B12) 1,000 mcg tablet,tjddfdarrgtsmbJnckjk1373NIESEAFNBHFPFJeiroMljcjuc 2024 11:00pmplace tablet under tongue and allow to dissolve for at least30 secs before swallowing Complies with drug therapySpironolactone 50 mg tvprebWmjzhg32ARYEGecnpLnzuwmdn 10th, 2025 3:19pmComplies with drug therapyCefuroxime Axetil 250 mg tablet Hjweoroadjfc754UBXNJxjdn dzfjp282Syfkumpt 2024 12:00amDecesummit healthcare regional medical center 2024 10:15amAspirin 325 mg uhqqbjEeiiqrqffrcq792RQLXWrcfyYkzj 2024 11:00pm September 19, 2025 2:36pmIpratropium Andrews 21 mcg (0.03 %) spray,non-aerosol Khkdigwilriu5QMPHTDNOZHERKBZRurnn dailyJune 2024 11:00pmJune 2024 10:41amadminister into each nostrilIpratropium Andrews 21 mcg (0.03 %) spray,non-tmgtwpzOsryumgrgyey1DXPVOQBFIEXNJUEJdnir dlspn50007Tlqr 30th, 2025 10:41amOctlexington va medical center 2024 2:12pmadminister into each nostril Immunizations Immunization Event Date Not Given Reason Dose Number Stock Checker Lot Number Reason(s) Given Vaccine Information Statement (VIS) Detail Administration Location COVID-19 mRNA, Comirnaty (Pfizer) January 07, 2021 COVID-19 mRNA, Comirnaty (Pfizer)January 28OVID19 mRNA, Comirnaty (DealerTrack)September 13OVID mRNA Comirnaty (DealerTrack)February 26, 2022 Fluzone TIV High-Dose 65YR+October 16, 2025U8859CAFPG [facility] influenza, unspecified formulationOctober 2018influenza, unspecified formulationNovember neumococcal Conjugate Vaccine, 13 valentApril 2017 Procedures Procedure Date Performed Status Urine Culture November 15, 2025 active Relevant Diagnostic Tests and/or Laboratory Data Laboratory Results Test Collection Date/Time Result Date/Time Result Interpretation Reference Range Result Comment Performing Site Urine Immunofixation October 06, 2025 9:18am Novembe r 2024 9:18am Comment .No monoclonality detected.Performed at: [facility] [id number] [place], [place] [id number] Director: Agapito Saleh PhD, Phone: [phone] Other CastsOctober 06, 2025 9:18amNONE SEEN #/LPFNONE SEENUrine Random CreatinineOctober 06, 2025 9:18amNovember 2024 9:18am63.53 mg/dL 20.00-300.00Immunoglobulin GNove2024 9:38amNovember 2024 9:38am 1126 mg/iD672-1418Wkchcnvzvno Hormone (Intact)October 06, 2025 9:38amNovember 2024 9:38am25 pg/oF34-69Qaurawaqs at: [facility] [id number] [place], [place] [id number] Director: Agapito Saleh PhD, Phone: [phone]- Hydroxy Vitamin D TotalOctober 06, 2025 9:38amNovember 2024 9:38am67.0 ng/mL<20 ng/mL Vit D ygjrlaiyy20-<30 ng/mL Vit D pcbweseedrtp32-356 ng/mL Vit D sufficient>100 ng/mL Potential ToxicityMagnesium LevelOctober 06, 2025 9:38am October 06, 2025 9:38am1.7 mg/dLBelow low normal1.8-2.4Uric AcidOctober 06, 2025 9:38amNove2024 9:38am5.4 mg/dL2.6-6.0Anion GapOctober 06, 2025 9:38amNove2024 9:38am16.3HematocritOctober 06, 2025 9:38amNove2024 9:38am40.6 %36.0-48.0Anion Gap2024 1:00pmDe2024 1:00pm14.2Activated Partial Thromboplast TimeDece2024 1:00pm November 15, 2025 1:00pm24.1 sec22.3-36.2Prothromb Time International Ratio November 15, 2025 1:00pmNovember 15, 2025 1:00pm0.97DESIRED INR:2.0-3.0 CONDITIONS NOT LISTED BELOW2.5-3.5 FOR PROSTHETIC HEART VALVE REPLACEMENT2.5-3.5 RECURRENT THROMBOSISBasophils # (Auto)November 15, 2025 1:00pmNovember 15, 2025 1:00pm0.0 10 3/uL0.0-0.1Urine Microscopic ReviewDe2024 1:12pm November 15, 2025 1:12pmYESUrine Other CrystalsOctober 06, 2025 9:18amNone Seen #/HPFNone SeenUrine Protein/Creatinine RatioNove2024 9:18am October 06, 2025 9:18am0.59Protein Electrophoresis M-SpikeOctober 06, 2025 9:38amNove2024 9:38amNot Observed g/dLNot ObservedAlbuminOctober 06, 2025 9:38amNove2024 9:38am3.6 g/dL3.4-5.0HemoglobinOctober 06, 2025 9:38amNovember 2024 9:38am13.6 g/dL12.0-16.0BUN/Creatinine RatioDece2024 1:00pmDecemb2024 1:00pm9.5Prothrombin TimeD2024 1:00pmDece2024 1:00pm10.2 sec9.0-11.6Basophils (%) (Auto) November 15, 2025 1:00pmDecember 2024 1:00pm0.6 %0.2-2.0Urine Bilirubin November 15, 2025 1:12p2024 1:12pmNEGATIVENEGATIVEUrine BacteriaNov2024 9:18amMODERATE #/HPFAbnormal (applies to non-numeric results)NONE SEENUrine Random Total ProteinOctober 06, 2025 9:18amNovember 2024 9:18am37.8 mg/dLAbove high normal<=11.9Globulin (PEP)October 06, 2025 9:38amNovember 2024 9:38am3.0 g/dL2.2-3.9BUN/Creatinine RatioNove2024 9:38amNovember 2024 9:38am15.2Mean Corpuscular HemoglobinOctober 06, 2025 9:38amNovember 2024 9:38am30.8 pg26.7-34.0Blood Urea Nitrogen November 15, 2025 1:00pmDecemb2024 1:00pm11.0 mg/dL7.0-18.0 Eosinophils # (Auto)November 15, 2025 1:00pmDecember 2024 1:00pm0.0 10 3/uL0.0-0.7Urine Occult BloodDece2024 1:12pmDecemb2024 1:12pmSMALLAbnormal (applies to non-numeric results)NEGATIVEUrine Bilirubin October 06, 2025 9:18amNEGATIVENEGATIVEAlbumin/Globulin (PEP)October 06, 2025 9:38amNovember 2024 9:38am1.30.7-1.7Blood Urea NitrogenNov2024 9:38amNove2024 9:38am17.0 mg/dL7.0-18.0Mean Corpuscular Hemoglobin ConcentNov2024 9:38amNovember 2024 9:38am33.5 g/dL 29.9-35.2Calcium LevelDecemb2024 1:00pmDecemb2024 1:00pm9.8 mg/dL8.5-10.1Eosinophils (%) (Auto)November 15, 2025 1:00pmDece2024 1:00pm0.6 %Below low normal0.9-7.0Urine AppearanceDebanner casa [facility] medical center 2024 1:12pm November 15, 2025 1:12pmCLEARCLEARUrine Occult BloodNov2024 9:18am MODERATEAbnormal (applies to non-numeric results)NEGATIVESerum Immunofixation InterpretationOctober 06, 2025 9:38amNove2024 9:38amComment:. Presence of monoclonal protein is unclear at this time. Suggestrepeat in 3 to 6 months if clinically indicated.Calcium LevelNov2024 9:38amNove2024 9:38am9.8 mg/dL8.5-10.1Mean Corpuscular VolumeNov2024 9:38amNove2024 9:38am92.1 fL81.0-99.0Chloride LevelDece2024 1:00pmDece2024 1:00pm99 mmol/S65-653MyfhicobjhUsfaxkwb 17th, 2025 1:00pmDece2024 1:00pm44.1 %36.0-48.0Urine ColorDecember 2024 1:12pmDecember 2024 1:12pmLT. YELLOWYELLOWUrine AppearanceNov2024 9:18amCLOUDYAbnormal (applies to non-numeric results)CLEARProtein Electrophoresis NoteOctober 06, 2025 9:38amNovemb2024 9:38amComment. Protein electrophoresis scan will follow via computer,mail, or mortgage operations manager delivery. Chloride LevelNov2024 9:38amNovemb2024 9:91pd836 mmol/L98-107 Mean Platelet VolumeOctober 06, 2025 9:38amNovemb2024 9:38am10.1 fL 9.5-13.5Carbon Dioxide LevelDece2024 1:00pmDece2024 1:00pm 27.8 mmol/L21.0-32.0HemoglobinDece2024 1:00pmDece2024 1:00pm14.9 g/dL12.0-16.0Urine Glucose (UA)November 15, 2025 1:12pmDece2024 1:12pmNEGATIVE mg/dLNEGATIVEUrine ColorNov2024 9:18am YELLOWYELLOWFree [place] Light Chains, QuantOctober 06, 2025 9:38amNovemb2024 9:38am32.6 mg/LAbnormal (applies to non-numeric results)3.3-19.4Carbon Dioxide LevelOctober 06, 2025 9:38amNovemb2024 9:38am25.7 mmol/L 21.0-32.0Platelet CountOctober 06, 2025 9:38amNove2024 9:41bo351 10 3/cL424-117AowixmxnibIgxvfapk 17th, 2025 1:00pmDece2024 1:00pm1.16 mg/dLAbove high normal0.55-1.02Immature Granulocyte # (Auto)November 15, 2025 1:00pmDece2024 1:00pm0.01 10 3/uL0.00-0.03Urine KetonesDece2024 1:12pmDece2024 1:12pmNEGATIVE mg/dLNEGATIVEUrine Glucose (UA) October 06, 2025 9:18amNEGATIVE mg/dLNEGATIVEFree Lambda Light Chains, Quant October 06, 2025 9:38amNovember 2024 9:38am17.3 mg/L5.7-26.3Creatinine October 06, 2025 9:38amNovemb2024 9:38am1.12 mg/dLAbove high normal 0.55-1.02Red Blood CountOctober 06, 2025 9:38amNove2024 9:38am4.41 10 6/uL4.20-5.40Estimated GFR ()November 15, 2025 1:00pm November 15, 2025 1:91ct81Yrmzu low normal>=60 mL/min/1.73m 2Immature Granulocyte % (Auto)November 15, 2025 1:00pmDece2024 1:00pm0.2 % 0.0-0.5Urine Leukocyte EsteraseDe2024 1:12pmDece2024 1:12pmLARGEAbnormal (applies to non-numeric results)NEGATIVEUrine Ketones October 06, 2025 9:18amNEGATIVE mg/dLNEGATIVEFree [place]/Lambda Light Chain RatioNove2024 9:38amNove2024 9:38am1.88Abnormal (applies to non-numeric results)0.26-1.65Performed at: - [facility] [id number] Director: Agapito Saleh PhD, Phone: [phone] Estimated GFR ()October 06, 2025 9:38amNove2024 9:37dc14Elxwb low normal>=60 mL/min/1.73m 2Red Cell Distribution WidthOctober 06, 2025 9:38amNove2024 9:38am12.3 %11.0-15.0Estimated GFR (Non- AmericanDece2024 1:00pmDece2024 1:03ta68Ljxvm low normal>=60 mL/min/1.73m 2Lymphocytes # (Auto)November 15, 2025 1:00pmDecemb2024 1:00pm1.4 10 3/uL1.2-3.8Urine NitriteDece2024 1:12pm November 15, 2025 1:12pmNEGATIVENEGATIVEUrine Leukocyte EsteraseKing'S Daughters Medical Center 2024 9:18amLARGEAbnormal (applies to non-numeric results)NEGATIVEImmunoglobulin ANovember 2024 9:38amNovemb2024 9:84cp546 mg/aM02-099Qqqcxfiwt GFR (Non- AmericanNov2024 9:38amNove2024 9:27rh70Fxgjg low normal>=60 mL/min/1.73m 2Corrected White Blood CountNov2024 9:38amNove2024 9:38am5.7 10 3/uL4.0-11.0Glucose LevelDe2024 1:00pmDece2024 1:70xe705 mg/vR29-923Dlmcsorgdmd (%) (Auto) November 15, 2025 1:00pmDece2024 1:00pm22.0 %20.5-60.0Urine pH November 15, 2025 1:12pmDece2024 1:12pm6.55.0-9.0Urine Mucus October 06, 2025 9:18amTRACEAbnormal (applies to non-numeric results)NONE SEEN Immunoglobulin MNove2024 9:38amNovemb2024 9:38am62 mg/mE13-423 Glucose LevelNov2024 9:38amNovemb2024 9:38am98 mg/hN81-709 Potassium LevelDece2024 1:00pmDece2024 1:00pm4.0 mmol/L 3.5-5.1Mean Corpuscular HemoglobinDece2024 1:00pmDece2024 1:00pm30.5 pg26.7-34.0Urine ProteinDecember 2024 1:12pmDecember 2024 1:12pmNEGATIVE mg/dLNEG/TRACEUrine NitriteNov2024 9:18amPOSITIVE Abnormal (applies to non-numeric results)NEGATIVESerum Total ProteinNov2024 9:38amNovember 2024 9:38am6.6 g/dL6.0-8.5Potassium LevelNov2024 9:38amNovember 2024 9:38am4.0 mmol/L3.5-5.1Sodium LevelDece2024 1:00pmDecember 2024 1:90ke823 mmol/K864-909Exxo Corpuscular Hemoglobin ConcentDece2024 1:00pmDece2024 1:00pm33.8 g/dL 29.9-35.2Urine Specific GravityDece2024 1:12pmDecember 2024 1:12pm<=1.005Abnormal (applies to non-numeric results)1.005-1.025Urine pH October 06, 2025 9:18am6.55.0-9.0Albumin (Send Out)October 06, 2025 9:38am October 06, 2025 9:38am3.6 g/dL2.9-4.4Sodium LevelNov2024 9:38am October 06, 2025 9:13cx911 mmol/N829-114Xqun Corpuscular VolumeDece2024 1:00pmDece2024 1:00pm90.4 fL81.0-99.0Urine UrobilinogenDecember 2024 1:12pmDece2024 1:12pm0.2 EU/dL0.2-1.0Urine ProteinNov2024 9:18am30 mg/dLAbnormal (applies to non-numeric results)NEG/TRACE Gnsbt-3-NkygfzozqDctwblpb 7th, 2025 9:38amNovemb2024 9:38am0.3 g/dL 0.0-0.4Phosphorus LevelNov2024 9:38amNovember 2024 9:38am3.7 mg/dL2.6-4.7Monocytes # (Auto)November 15, 2025 1:00pmDece2024 1:00pm0.7 10 3/uL0.3-0.8Urine RBCNovpage hospital 2024 9:41lw0-7 #/HPF0-2 Hghfn-3-CjlrvmvtsDblfgygo 2024 9:38amNovember 2024 9:38am0.8 g/dL 0.4-1.0Monocytes (%) (Auto)November 15, 2025 1:00pmDece2024 1:00pm 10.0 %1.7-12.0Urine Specific GravityKing'S Daughters Medical Center 2024 9:18am1.0101.005-1.025 Beta GlobulinsKing'S Daughters Medical Center 2024 9:38amNovember 2024 9:38am1.0 g/dL0.7-1.3 Mean Platelet VolumeDece2024 1:00pmDece2024 1:00pm10.4 fL 9.5-13.5Urine Squamous Epithelial CellsKing'S Daughters Medical Center 2024 9:18amRARE #/LPF NONE/RAREGamma GlobulinsKing'S Daughters Medical Center 2024 9:38amNovesummit healthcare regional medical center 2024 9:38am0.9 g/dL0.4-1.8Neutrophils # (Auto)November 15, 2025 1:00pmDece2024 1:00pm4.3 10 3/uL1.4-6.5Urine UrobilinogenKing'S Daughters Medical Center 2024 9:18am0.2 EU/dL 0.2-1.0Neutrophils (%) (Auto)November 15, 2025 1:00pmDecemb2024 1:00pm66.6 %43.0-75.0Urine WBCNovpage hospital 2024 9:49mj80-07 #/HPFAbnormal (applies to non-numeric results)NONE SEENPlatelet CountDecesummit healthcare regional medical center 2024 1:00pmDeceer 2024 1:93kq182 10 3/fB495-107Gnl Blood CountDebanner casa [facility] center 2024 1:00pmDeceer 2024 1:00pm4.88 10 6/uL4.20-5.40Red Cell Distribution WidthDebanner casa grande medical center 2024 1:00pmDeceer 2024 1:00pm12.9 %11.0-15.0 Corrected White Blood CountDebanner casa grande medical center 2024 1:00pmDeceer 2024 1:00pm 6.5 10 3/uL4.0-11.0 Vital Signs Vital Reading Result Reference Range Collection Date/Time Height 62.5 [in_i] September 19, 2025 2:39enOaavuj42.27 kgOctlexington va medical center 2024 2:31pmBody Temperature 97.2 [degF]97.6-99.0Octlexington va medical center 2024 2:31pmHeart Rate76 /jjd91-193Scjxuqa 2024 2:31pmRespiratory rate18 /vva18-59Pgvmcpd 2024 2:31pmOxygen saturation by Pulse oosmysln35 %95-100Octlexington va medical center 2024 2:31pmBP Kwjobiwq227 mm[Hg]100-140Octlexington va medical center 2024 2:31pmBP Oigvpjisk32 mm[Hg]60-100Octlexington va medical center 2024 2:31pmBMI (Body Mass Index)28.3 kg/u9Frhlpxx 2024 2:32joUmjfky77 [in_i]October 09, 2025 3:05zsWfxcnf66.12 kgNovember 2024 3:18pmHeart Rate70 /owz70-034Eoglxfan 2024 3:18pmRespiratory rate16 /dxt69-76Pbuzvwyu 10th, 2025 3:18pmOxygen saturation by Pulse qxdoocpi25 %95-100Nov2024 3:18pmBP Mzxejvyc710 mm[Hg]100-140Nov2024 3:18pmBP Mewnbtdni22 mm[Hg]60-100Nov2024 3:18pmBMI (Body Mass Index)29.0 kg/t5Omaoaseu2024 3:26ueKvtqqm25 [in_i]November 17, 2025 9:80jpTrwjjq37.21 kgNovember 17, 2025 9:58amBody Phskarkceeu76.9 [degF]97.6-99.0ce2024 9:58am Heart Rate79 /bfw19-493OwvcvwayNovember 17, 2025 9:58amBP Cuedfpoh359 mm[Hg]100-140 November 17, 2025 9:58amBP Motyityek23 mm[Hg]60-100Dece2024 9:58am BMI (Body Mass Index)28.7 kg/j8XlepucjhNovember 17, 2025 9:58am Advance Directives Advance Directive Response Recorded Date/ Time Advance Directives No September 19, 2025 2:57pm Insurance Providers Guarantor [place] Address [address] [facility] [id number] Info.Home Phone: Payer Group Member ID Coverage Type Subscriber Relationship to Subscriber Effective Date Expiration Date Medicare [id number] Liz Id: [id number] [address] [facility] [address] Home Phone: Email: [email or web address] Medicare Advantage PFFS [id number] Liz Id: [id number] [address] [facility] [address] Home Phone: Email: [email or web address] Encounters Encounter Location(s) Arrival/Admit Date Discharge/Departure Date Discharge/Departure Disposition Provider(s) Departed Physician/ Provider Office Visit -[facility] September 19, 2025 3:29pm September 19, 2025 4:00pm Discharged to home care or self care (routine discharge) Frank Mallory MD Non-patient / Non-visit -[facility]2024 9:38am ARTURO Pizanoeparted Physician/Provider [facility] 20[facility] 3:04pmOctober 09, 2025 3:58pmDischarged to home care or self care (routine discharge)Frank Mallory MDDeparted Physician/Provider Office Visit-[facility] 2024 1:15pmNovpage [facility] 2024 1:24pmDischarged to home care or self care (routine discharge)Nessa Cifuentes-patient / Mkx-asngg-[place] [facility] CoDeb[facility] 2024 1:00pmAsher De Leon MDDeparted Referred-[facility] 2024 1:12pmDecesummit healthcare regional medical center 2024 1:13pmDischarged to home care or self care (routine discharge)Asher De Leon MDDeparted Physician/Provider Office Visit-[facility] 2024 9:51amDebanner casa [facility] 2024 10:21am Discharged to home care or self care (routine discharge)Skyla Pinto MD Recent Diagnosis Onset Date Admit Date CKD (chronic kidney disease) stage 3, GFR 30-59 ml/min Unknown September 19, 2025 3:29pm Hyperlipidemia, unspecified January 14, 2016 September 19, 2025 3:29pm Hypertensive chronic kidney disease with stage 1 through stage 4 chronic ki Unknown September 19, 2025 3:29pm Murmur Unknown September 19 3:29pm Secondary hyperparathyroidism Unknown Oc 2024 3:29pm CKD (chronic kidney disease) stage 3, GFR 30-59 ml/min Unknown October 09, 2025 3:04pm Hydronephrosis Unknown October 09, 2 025 3:04pm Hyperlipidemia, unspecified January 14, 2016 October 09, 2025 3:04pm Hypertensive chronic kidney disease with stage 1 through stage 4 chronic ki Unknown October 09, 2025 3:04pm Hypomagnesemia Unknown October 09, 2 025 3:04pm Murmur Unknown October 09, 2 025 3:04pm Secondary hyperparathyroidism Unknown No 2024 3:04pm UTI (urinary tract infection) Unknown No 2024 3:04pm Assessments Diagnosis Onset Date Resolution Status Admit Date CKD (chronic kidney disease) stage 3, GF R 30-59 ml/min acuteOctober 2024 3:29pmHyperlipidemia, unspecifiedFebruary 2015 acuteOctober 2024 3:29pmHypertensive chronic kidney disease with stage 1 through stage 4 chronic kiacuteOctober 2024 3:29pmMurmuracuteOctober 2024 3:29pmSecondary hyperparathyroidismacuteOctober 2024 3:29pmCKD (chronic kidney disease) stage 3, GFR 30-59 ml/minacuteNovember 2024 3:04pmHydronephrosisacuteNovember 2024 3:04pmHyperlipidemia, unspecified January 14, 2016acuteNovember 2024 3:04pmHypertensive chronic kidney disease with stage 1 through stage 4 chronic kiacuteNovember 2024 3:04pm HypomagnesemiaacuteNovember 2024 3:04pmMurmuracuteNovember 2024 3:04pmSecondary hyperparathyroidismacuteNov2024 3:04pmUTI (urinary tract infection)acuteNov2024 3:04pm Plan of Treatment Author [facility] 2024 11:13amIt was a pleasure to see Mrs. Hill in our office for evaluation and management of the CKD. She likely has a CKD due to the longstanding hypertension with baseline serum creatinine around 1.4 mg/dL. I discussed with her the importance of good HTN control to slow down the progression of CKD. I have advised her to avoid NSAIDs or any other eodx-qyc-jvbhzpm nephrotoxic medications. I have ordered a kidney ultrasound to evaluate the renal anatomy. I have ordered the UA and UPCR to evaluate for hematuria and proteinuria. Will continue statins. Advised to continue follow-up with PCP for monitoring of LFTs and lipid profile. Her blood pressure is controlled and she appears to be euvolemic. Will continue current dose of the spironolactone. Advised her to monitor blood pressure at home and call office if stays above 140 over 90 mmHg. Her serum calcium is within normal limit. Will check PTH and vitamin D. She has a systolic cardiac murmur. Will check echocardiogram. [facility] 20[facility] 8:12amShe likely has a CKD due to the longstanding hypertension with baseline serum creatinine around 1.1- 1.4 mg/dL. I discussed with her the importance of good HTN control to slow down the progression of CKD. I have advised her to avoid NSAIDs or any other gadv-gef-wlnqkqq nephrotoxic medications. Her blood pressure is controlled and she appears to be euvolemic. Will continue current dose of the spironolactone. Advised her to monitor blood pressure at home and call office if stays above 140 over 90 mmHg. Her MBD parameters including serum calcium, phosphorus, PTH and vitamin D are within the goal. Will continue calcium and vitamin D. Will continue statins. Advised to continue follow-up with PCP for monitoring of LFTs and lipid profile. Her echocardiogram showed LVEF 70% with mild tricuspid regurgitation. She has a mild right-sided hydronephrosis on renal ultrasound. Will refer to the urology. She has hypomagnesemia likely due to the diuretic induced renal magnesium wasting. Advised her to continue magnesium. She appears to have a UTI. I have prescribed oral antibiotics. Future Tests Future scheduled test information is unavailable Pending Tests Test Name Ordered Date Scheduled Date ECH echo transthoracic September 19, 2025 2:53pm Renal Function PanelOct2024 2:48pm6 WeeksUS renal BIOctober 2024 2:52pmRenal Function PanelAt[facility] 3:53pm6 Months Future Visits Future appointment information is unavailable Future Procedures Procedure Name Ordered Date Scheduled Date Urine Culture November 15, 2025 9:31pm Decem jose 2024 1:12pm Dipstick and Microscopic September 19, 2025 2:48 pm 6 Weeks Immunofixation,Serum September 19, 2025 2:48pm 6 Weeks Free K+L LT Chains, Qn, S September 19, 2025 2:4 8pm 6 Weeks Prot Electrophoresis w/Interp September 19, 2025 2:48pm 6 Weeks Protein Electrophoresis, Serum September 19 2:48pm 6 Weeks Uric Acid September 19, 2025 2:48pm 6 Week s Dipstick and Microscopic October 09, 2025 3:5 3pm 6 Months Hemogram CBC Without Diff October 09, 2025 3: 53pm 6 Months Magnesium October 09, 2025 3:53pm 6 Mon ths Protein Creat Ratio Ur Random October 09 3:53pm 6 Months Parathyroid Hormone Intact October 09, 2025 3 :53pm 6 Months Uric Acid October 09, 2025 3:53pm 6 Mon ths Vitamin D 25 Hydroxy Total October 09, 2025 3 :53pm 6 Months Future Medications Future medication information is unavailable Patient Instructions Patient instructions are unavailable
[2025-11-29] VITALS (11 sets, daily range): BP systolic 99–131; BP diastolic 48–78; PULSE 67–89; TEMP 36.4–36.7; O2SAT 92–98; BMI 27.0
[2025-11-29] MEDS: CEFAZOLIN SODIUM 2 GM/50 ML D5W PREMIX IV (13:11)
[2025-11-29] MEDS: IOHEXOL 240 MG/ML - 10 ML VIAL INJ (13:34)
--- NOTE | 2025-11-29 14:40 | PM.URSON ---
Urology Surgery Operative Note Operative Note Procedure Date: 11/29/25 Time Out Performed: yes Pre-op Diagnosis: Right kidney stone Post-op Diagnosis: same as pre-op Procedures performed: Cystoscopy, right retrograde pyelogram, ureteroscopy laser lithotripsy/stone extraction, stent placement Anesthesia: General-LMA (Dr. De Jesus) Primary Surgeon: Sarah Beth Radford Complications: none Estimated blood loss (mL): 0 Findings: R RPG- filling defect UPJ, bifid renal pelvis, mild hydronephrosis. Near 1.5 cm right UPJ/renal pelvis stone underwent uncomplicated combination of laser lithotripsy and stone basket extraction. Complex calyceal system, difficult to extract lower pole fragments- popcorned fragments. Minimal trabeculated bladder, cystitis cystica Specimens: right kidney stones Drains: 6Fr x 24 cm JJ right ureteral stent Incision: none Indications for Procedures: 75 year old female recently diagnosed with a 1.4x1.3 cm right renal pelvis stone with periureteral stranding and mild hydronephrosis. She was evaluated in clinic and elected to proceed with definitive stone surgery of right ureteroscopy, laser lithotripsy/stone extraction, stent placement after discussion of treatment options. Risks were discussed including but not limited to bleeding, pain, infection, damage to surrounding structures, inability to treat the stone, and need for additional procedures. The patient understands the stent is not permanent and needs to be removed or exchanged within 3 months to prevent encrustation, infection, invasive procedures and/or permanent renal damage. Detailed description of Procedure: After informed consent was obtained, the patient was brought to the operating room and transferred onto the operating table in supine position. Sequential compression devices were placed on bilateral lower extremities. The patient received the appropriate dose of preoperative IV antibiotics and general anesthesia LMA was induced. They were positioned in modified dorsolithotomy with the appropriate pressure points padded, prepped, and draped in the usual sterile fashion for this procedure. An operative safety timeout was performed confirming the patient's identity, laterality and procedure, and all present agreed to proceed. I began by inserting a 22 [place] rigid cystoscope with 30 degree lens into the patient's urethra and bladder without difficulty. There were no bladder tumors, lesions, stones or foreign bodies. Bilateral ureteral orifices were orthotopic and patent. I turned my attention to the right ureteral orifice and a 5- [place] open-ended catheter was inserted into the ureteral orifice and dilute contrast was injected for retrograde pyelogram with findings as above. A hybrid wire was inserted into the ureter up to the renal pelvis confirmed on fluoroscopy, requiring some manipulation to bypass UPJ stone. A 10/12 [place] by 35 cm ureteral access sheath was inserted over the wire in a sequential fashion to gain access to the stone. Next a flexible ureteroscope was inserted through the sheath and advanced to the renal pelvis under fluoroscopic guidance until the stone was reached. A 275 ?m thulium laser fiber was used to break the stone into fragments which were then removed with a 1.8 tipless nitinol basket. The remaining smaller fragments or those in lower pole unable to be reached due to angulation were popcorned/dusted into sub-mm pieces. After the stone was adequately treated, a full renoscopy was performed confirming no significant residual stones or fragments remained. Contrast was injected to assist with mapping for the renoscopy. The wire was reinserted and a pull down ureteroscopy was performed confirming no stones remained in the ureter. Contrast was injected for retrograde pyelogram confirming no extravasation of contrast, filling defects or hydronephrosis. The wire was backloaded through the cystoscope and 6Fr x 24 cm JJ ureteral stent was advanced over the wire, noting adequate curl in the renal pelvis and bladder on fluoroscopic and direct visualization. The bladder was drained and inspected one final time to ensure adequate position of stent and no undue trauma to the bladder was done. The stones were sent for pathology and the cystoscope was removed. The patient tolerated the procedure well without complication. The patient was awakened from anesthesia and sent to PACU in stable condition. Plan: Discharge home with stent pain medications. Follow up for in-office cystoscopy, stent removal in 1-2 weeks. Other Provider present: No Post Operative care instructions: See discharge instructions Attending Doc Confirm Attending Attestation: Yes
== END 2025-11-29 15:43 | disposition home or self-care (01) ==
LOC: SURGOUT 11:52
PROVIDERS: PCP Family Medicine; Visit Provider Urology
PROC: (CPT 52356; principal; 2025-11-29 13:05)
DX: N20.0 Calculus of kidney (principal); E78.5 Hyperlipidemia, unspecified; Z90.710 Acquired absence of both cervix and uterus; I10 Essential (primary) hypertension; K21.9 Gastro-esophageal reflux disease without esophagitis; E03.9 Hypothyroidism, unspecified
CPT/HCPCS: 52356; 36415; 74420; 82365; 99999; J0131; J0690; J1100; J1885; J2003; J2250; J2405; J2704; J3010; Q9966